=== PATIENT | female | born 2000 | race Two or more races ===

== ENCOUNTER 2022-04-17 08:33 | Emergency (ER) | payer BC ==
[~2022-04-17] VITALS: Ht 165.1 cm; Wt 95.3 kg
--- NOTE | 2022-04-17 08:48 | NUR ---
BIB FRIEND C/O ABDOMINAL PAIN SINCE MONDAY, WORSE TODAY 8/10 ON PAIN SCALE. PT STATED THAT THE PAIN COMES ANAD GOES AND START FROM HER MID ABDONIAL REGION AND LOWER ABDOMEN. PT STATED THAT SHE HAS NOT HAD DISCOMFORT URINATING BUT HAS HAD DIARRHEA FOR THAT PAST 2 DAYS. PROVIDED WITH WARM BLANKET FOR COMFORT. AWAITING MD SÁNCHEZ.
--- NOTE | 2022-04-17 08:49 | NUR ---
To ER bed 1, from home c/o abd pain since monday worst today 8/10 pain scale, aaox3, breathing even and non labored, connected to monitor, awaiting md orders
--- NOTE | 2022-04-17 08:59 | NUR ---
URINE COLLECTED AND SENT TO LAB
--- NOTE | 2022-04-17 09:00 | NUR ---
IV SAVANAH Snider HAND 20G. LABS DRAWN AND SENT.
[2022-04-17] MEDS ORDERED: AMPH10TA4 PO (09:04)
[2022-04-17] MEDS ORDERED: SERT100T12 PO (09:04)
[2022-04-17] MEDS ORDERED: ARIP10TA9 PO (09:04)
[2022-04-17] MEDS ORDERED: MORPHINE SULFATE INJ 2 MG/ML DISP.SYRIN ONE (09:13)
[2022-04-17] MEDS ORDERED: ONDANSETRON HCL/PF 4 MG/2 ML VIAL ONE (09:13)
[2022-04-17 09:16] LABS: BASOPHILS # (AUTO) 0.1 K/uL (0.0-0.2); BASOPHILS % (AUTO) 0.8 % (0.0-2.0); EOSINOPHILS % (AUTO) 1.1 % (0.0-6.0); HEMATOCRIT 41 % (33-45); HEMOGLOBIN 13.6 g/dL (11.5-14.8); LYMPHOCYTES % (AUTO) 26.6 % (20.0-44.0); MEAN CORPUSCULAR HGB CONC 33 g/dl (31.0-36.0); MEAN CORPUSCULAR VOLUME 89 fL (82-100); MONOCYTES # (AUTO) 0.6 K/uL (0.1-1.30); MONOCYTES % (AUTO) 4.2 % (2.0-12.0); NEUTROPHILS # (AUTO) 10.1 K/uL (1.8-8.9); NEUTROPHILS % (AUTO) 67.3 % (43.0-81.0); PLATELET COUNT (AUTO) 362 K/uL (150-450); RED BLOOD CELL COUNT(AUTO) 4.58 MIL/uL (4.0-5.2)
[2022-04-17 09:24] LABS: BILIRUBIN,URINE NEGATIVE (NEGATIVE); COLOR,URINE YELLOW (YELLOW); LEUKOCYTE ESTERASE ,URINE NEGATIVE (NEGATIVE); NITRITE, URINE NEGATIVE (NEGATIVE); PROTEIN,URINE TRACE mg/dl (NEGATIVE); UGLUCOSE NEGATIVE (NEGATIVE); UROBILINOGEN,URINE 0.2 EU/dL (0.2)
[2022-04-17] MEDS ORDERED: ONDANSETRON HCL/PF - ER 4 MG/2 ML VIAL IV ONE (09:30)
[2022-04-17] MEDS ORDERED: MORPHINE SULFATE INJ 2 MG/ML DISP.SYRIN IV ONE (09:30)
[2022-04-17] MEDS ORDERED: IV NS 0.9% 1,000 ML IV ONE (09:30)
--- NOTE | 2022-04-17 09:46 | NUR ---
PT TAKEN TO CT VIA [facility]
--- NOTE | 2022-04-17 09:56 | NUR ---
PT RETURNED FORM CT VIA [facility]
[2022-04-17 11:13] LABS: BACTERIA,URINE None seen /HPF (None Seen); RBC,URINE 0-2 /HPF (0-2)
[2022-04-17 11:14] LABS: SQUAMOUS EPITHELIAL CELL,UR 0-2 /HPF (None Seen); WBC,URINE 0-2 /HPF (0-3)
[2022-04-17 11:18] LABS: ALBUMIN 3.5 g/dL (3.4-5.0); BILIRUBIN,TOTAL 0.2 mg/dL (0.2-1.0); CALCIUM, SERUM 8.3 mg/dL (8.5-10.1); CREATININE 0.7 mg/dL (0.6-1.3); POTASSIUM 4.2 mmol/L (3.5-5.1); TOTAL PROTEIN, SERUM 7.7 g/dL (6.4-8.2)
[2022-04-17] MEDS ORDERED: DICY10CA37 PO (11:25)
--- NOTE | 2022-04-17 11:36 | NUR ---
Patient discharged to home in stable condition. Written and verbal after care instructions given. Patient verbalizes understanding of instruction.
[2022-04-17 11:37] VITALS: BP 132/65
== END 2022-04-17 11:38 | disposition home or self-care (01) ==
LOC: ER 08:37
DX: R10.84 Generalized abdominal pain (principal); R10.31 Right lower quadrant pain; Z79.899 Other long term (current) drug therapy
CPT/HCPCS: 99284; 74176; 96374; 96361; 96375; 85025; 80048; 83690; 80076; 84703; 81001; 36415; J2405 ×2; J7030; J2270

== ENCOUNTER 2024-07-30 23:55 | Emergency (ER) | payer BC ==
[~2024-07-30 23:55] MED LIST: AMPH10TA4 PO; ARIP10TA9 PO; DICY10CA37 PO; SERT100T12 PO
== END 2024-07-31 00:45 | disposition left against medical advice (07) ==
LOC: ER 07-31 00:03
DX: Z00.00 Encounter for general adult medical examination without abnormal findings (principal); Z53.21 Procedure and treatment not carried out due to patient leaving prior to being seen by health care provider